=== PATIENT | female | born 1935 | race Caucasian/White ===

== ENCOUNTER 2021-02-09 15:52 | Emergency (ER) | payer MEDICARE, OTHER ==
[2021-02-09] MEDS ORDERED: Sodium Chloride 0.9% 10 ML Syringe FLUSH PRN (15:57)
--- NOTE | 2021-02-09 16:05 | EDM.PDOC ---
ED HPI GENERAL MEDICAL PROBLEM - General Chief Complaint: Trauma Stated Complaint: FALL Time Seen by Provider: 02/09/21 15:52 Source of Information: Reports: Patient, Family - History of Present Illness INITIAL COMMENTS - FREE TEXT/NARRATIVE: Heike, 85-year-old female, presents by ambulance this afternoon after her daughter found her on the floor in the 1500 time range today. She is pleasantly confused complaining of left femur pain and knee pain. She was unable to get up off the floor and was assisted into a chair which was somewhat uncomfortable for her. Her daughter tried to make phone contact with her last night and received a tone that call waiting was in process. This was roughly at 2100 hrs. on Wednesday, 08 February. There is no confirmation or estimate of time is Heike does not underst and/remember when this happened. She moves all her extremities with pain to the left lower extremity has no deficit in speech, but is pleasantly confused as to the occurrence and what process are occurring. When questioned she states she is unsure of what happened but is very uncomfortable. Daughter states she is a patient of Dr. Magali Hayes is although it is been many years since she has been seen on a routine basis. Onset: Unknown/Unsure - Related Data Allergies Allergy/AdvReac Type Severity Reaction Status Date / Time No Known Allergies Allergy Verified 02/09/21 16:43 Home Meds: Home Meds . [No Known Home Meds] 02/09/21 [History] Past Medical History - Past Health History Medical/Surgical History: Denies Medical/Surgical History - History Comment History Comment: Her daughter states she is in very good general health. Was a patient of Dr. 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 States she has not been on anything for some time and not following routine clinic visits, especially since COVID-19 pandemic. Social & Family History - Family History Family Medical History: No Pertinent Family History - Tobacco Use Tobacco Use Within Last Twelve Months: No ED ROS GENERAL - Review of Systems Review Of Systems: Unable To Obtain Reason Not Obtained: NOt accurate as confusion occurs. ED EXAM, GENERAL - Physical Exam Exam: See Below Free Text/Narrative:: Alert and cheerful, pleasantly confused to the undertaking of what has occurred with no recall of when incident occurred. She is fully dressed and when questioned, states she did not make it to latter day today, too busy. It is noted she has her hair and that tied around her left midshaft femur to which she cannot explain why it is there. When questioned if she puts it there when taking it off so it does not fall to the floor she laughs with no response. HEENT shows symmetry with facial motion intact. She is able to speak with no deficit nor slurring but, does not appropriately understand or answer questions. I do not appreciate any discomfort, areas of abrasion or tenderness, with soft supple neck. Thorax is mildly diminished likely due to her effort as well as no wheezes nor crackles are noted. Cardiac is distant S1-S2 with no appreciated murmur. There is no abdominal tenderness with bowel sounds present Radial pulses are present and correlate with apical heart rate. Tenderness in the left proximal femur, tenderness to the midshaft femur and knee region. Left lower extremity is shortened and rotated outward at the foot with pulse present skin is cool bilateral dorsalis pedis pulses are present. Nurses are able to remove her pants with slight discomfort to the left femur re oneilon to be able to place Carbajal catheter. She remains in cheerful status but is not fully appropriate in responses. #1 Interpretation EKG Date: 02/09/21 Time: 16:51 Rhythm: NSR [place]: Normal P-Wave: Present QRS: Normal ST-T: Normal QT: Prolonged Comparison: NA - No Prior EKG Course - Vital Signs Last Recorded V/S: Last Vital Signs Temp 97.8 F 02/09/21 15:55 Pulse 85 02/09/21 15:55 Resp 20 02/09/21 15:55 BP 127/77 02/09/21 15:55 Pulse Ox 97 02/09/21 15:55 - Orders/Labs/Meds Orders: Active Orders 24 hr Category Date Time Status EKG Documentation Completion [RC] ASDIRECTED Care 02/09/21 15:56 Ordered Carbajal Catheter Insertion [Insert Urinary Catheter] [OM. Care 02/09/21 16:00 Ordered PC] Q24H Peripheral IV Care [RC] . DIRECTED Care 02/09/21 15:57 Ordered Urinary Catheter Assessment [RC] ASDIRECTED Care 02/09/21 16:00 Ordered Chest 1V Frontal [CR] Stat Exams 02/09/21 15:58 Ordered Femur Min 1V Lt [CR] Stat Exams 02/09/21 15:58 Ordered Pelvis 1V or 2V [CR] Stat Exams 02/09/21 15:58 Ordered CK W CKMB [CHEM] Stat Lab 02/09/21 15:56 Ordered COMPREHENSIVE METABOLIC PN,CMP [CHEM] Stat Lab 02/09/21 15:55 Ordered LACTIC ACID [CHEM] Stat Lab 02/09/21 15:57 Ordered PTT,PARTIAL THROMBOPLSTIN TIME [COAG] Stat Lab 02/09/21 15:56 Ordered TROPONIN I HIGH SENSITIVITY [CHEM] Stat Lab 02/09/21 15:56 Ordered Sodium Chloride 0.9% [Saline Flush] Med 02/09/21 15:57 Ordered 10 ml FLUSH Q8HR PRN Peripheral IV Insertion Adult [OM.PC] Routine Oth 02/09/21 15:57 Ordered EKG 12 Lead [EK] Urgent Ther 02/09/21 15:55 Ordered Medication Orders Sodium Chloride (Sodium Chloride 0.9% 10 Ml Syringe) 10 ml FLUSH Q8HR PRN PRN Reason: keep vein open Labs: Laboratory Tests 02/09/21 02/09/21 Range/Units 16:00 16:00 WBC 12.59 H (5.00-10.00) 10^3/uL RBC 4.31 (3.80-5.50) 10^6/uL Hgb 13.5 (12.0-16.0) g/dL Hct 40.1 (37.0-47.0) % MCV 93.0 H (82.0-92.0) fL MCH 31.3 H (27.0-31.0) pg MCHC 33.7 (32.0-36.0) g/dL RDW 13.0 (11.5-14.5) % Plt Count 316 (150-400) 10^3/uL MPV 9.9 (7.4-10.4) fL Immature Gran % (Auto) 0.2 (0.0-5.0) % Neut % (Auto) 87.1 H (50.0-70.0) % Lymph % (Auto) 6.1 L (20.0-40.0) % [place] % (Auto) 6.5 (2.0-8.0) % Eos % (Auto) 0.0 L (1.0-3.0) % Baso % (Auto) 0.1 (0.0-1.0) % Neut # (Auto) 10.97 H (2.50-7.00) 10^3/uL Lymph # (Auto) 0.77 L (1.00-4.00) 10^3/uL [place] # (Auto) 0.82 H (0.10-0.80) 10^3/uL Eos # (Auto) 0.00 L (0.10-0.30) 10^3/uL Baso # (Auto) 0.01 (0.00-0.10) 10^3/uL Immature Gran # (Auto) 0.02 (0.00-0.50) 10^3/uL Specimen Type Urincc Urine Color Yellow (YELLOW) Urine Appearance Slightly cloudy H (CLEAR) Urine pH 7.0 (5.0-9.0) Ur Specific [place] 1.025 (1.005-1.030) Urine Protein 100 H (NEGATIVE) mg/dL Urine Glucose (UA) Negative (NEGATIVE) mg/dL Urine Ketones 40 H (NEGATIVE) mg/dL Urine Occult Blood Trace-intact H (NEGATIVE) Urine Nitrite Negative (NEGATIVE) Urine Bilirubin Negative (NEGATIVE) Urine Urobilinogen 0.2 (0.2-1.0) E.U./dL Ur Leukocyte Esterase Negative (NEGATIVE) U Hyaline Cast (Auto) Few Urine RBC 5-10 H (0-5) /HPF Urine WBC 5-10 H (0-5) /HPF Ur Epithelial Cells Rare /LPF Urine Bacteria Rare (NONE TO FEW) /HPF Granular Casts (Auto) Few Meds: Medications Generic Name Dose Route Start Last Admin Trade Name Freq PRN Reason Stop Dose Admin Sodium Chloride 10 ml 02/09/21 15:57 Sodium Chloride 0.9% 10 Ml Syringe FLUSH Q8HR PRN keep vein open - Re-Assessments/Exams Free Text/Narrative Re-Assessment/Exam: 02/09/21 16:47 Heike and her daughter are advised of the surgical neck fracture of the left femur/hip fracture. They choose [facility] in [place] for consult for surgical repair. 02/09/21 17:07 Departure - Departure Time of Disposition: 17:06 Disposition: DC/Tfer to Acute Hospital 02 Condition: Fair Clinical Impression: Fracture of neck of femur, hip, Fracture, femur neck, Rhabdomyolysis, Pain of left femur, Hip pain, left, Knee pain, left anterior - Discharge Information *PRESCRIPTION DRUG MONITORING PROGRAM REVIEWED*: Not Applicable *COPY OF PRESCRIPTION DRUG MONITORING REPORT IN PATIENT PRASANTH: Not Applicable Referrals: Montana Hayes MD [Primary Care Provider] - Forms: ED Department Discharge Additional Instructions: Dr Moore accepting [facility] in [place]. Sepsis Event Note (ED) - Focused Exam Vital Signs: Vital Signs Temp Pulse Resp BP Pulse Ox 02/09/21 15:55 97.8 F 85 20 127/77 97 - Problem List & Annotations (1) Hip pain, left SNOMED Code(s): 86219581 Code(s): M25.552 - PAIN IN LEFT HIP Status: Acute Priority: High Current Visit: Yes (2) Pain of left femur SNOMED Code(s): 623433058 Code(s): M89.8X5 - OTHER SPECIFIED DISORDERS OF BONE, THIGH Status: Acute Priority: High Current Visit: Yes (3) Knee pain, left anterior SNOMED Code(s): 273595153 Code(s): M25.562 - PAIN IN LEFT KNEE Status: Acute Priority: High Current Visit: Yes (4) Confusion SNOMED Code(s): 466310205 Code(s): R41.0 - DISORIENTATION, UNSPECIFIED Status: Acute Priority: High Current Visit: Yes (5) Fracture, femur neck SNOMED Code(s): 7527768 Code(s): S72.009A - FRACTURE OF UNSP PART OF NECK OF UNSP FEMUR, INIT Status: Acute Priority: High Current Visit: Yes Qualifiers: Encounter type: initial encounter Fracture type: closed Laterality: left Qualified Code(s): S72.002A - Fracture of unspecified part of neck of left femur, initial encounter for closed fracture (6) Rhabdomyolysis SNOMED Code(s): 832838531 Code(s): M62.82 - RHABDOMYOLYSIS Status: Acute Current Visit: Yes Qualifiers: Rhabdomyolysis type: traumatic Encounter type: initial encounter Qualified Code(s): T79.6XXA - Traumatic ischemia of muscle, initial encounter - Problem List Review Problem List Initiated/Reviewed/Updated: Yes - My Orders Last 24 Hours: My Active Orders 02/09/21 15:55 COMPREHENSIVE METABOLIC PN,CMP [CHEM] Stat EKG 12 Lead [EK] Urgent 02/09/21 15:56 EKG Documentation Completion [RC] ASDIRECTED CK W CKMB [CHEM] Stat PTT,PARTIAL THROMBOPLSTIN TIME [COAG] Stat TROPONIN I HIGH SENSITIVITY [CHEM] Stat 02/09/21 15:57 Peripheral IV Care [RC] . DIRECTED LACTIC ACID [CHEM] Stat Sodium Chloride 0.9% [Saline Flush] 10 ml FLUSH Q8HR PRN Peripheral IV Insertion Adult [OM.PC] Routine 02/09/21 15:58 Chest 1V Frontal [CR] Stat Femur Min 1V Lt [CR] Stat Pelvis 1V or 2V [CR] Stat 02/09/21 16:00 Carbajal Catheter Insertion [Insert Urinary Catheter] [OM.] Q24H Urinary Catheter Assessment [RC] ASDIRECTED - Assessment/Plan Last 24 Hours: My Active Orders 02/09/21 15:55 COMPREHENSIVE METABOLIC PN,CMP [CHEM] Stat EKG 12 Lead [EK] Urgent 02/09/21 15:56 EKG Documentation Completion [RC] ASDIRECTED CK W CKMB [CHEM] Stat PTT,PARTIAL THROMBOPLSTIN TIME [COAG] Stat TROPONIN I HIGH SENSITIVITY [CHEM] Stat 02/09/21 15:57 Peripheral IV Care [RC] . DIRECTED LACTIC ACID [CHEM] Stat Sodium Chloride 0.9% [Saline Flush] 10 ml FLUSH Q8HR PRN Peripheral IV Insertion Adult [OM.PC] Routine 02/09/21 15:58 Chest 1V Frontal [CR] Stat Femur Min 1V Lt [CR] Stat Pelvis 1V or 2V [CR] Stat 02/09/21 16:00 Carbajal Catheter Insertion [Insert Urinary Catheter] [OM.PC] Q24H Urinary Catheter Assessment [RC] ASDIRECTED Plan: Dr Moore accepting [facility] in [place].
[2021-02-09 16:44] LABS: ANION GAP 18.7 mmol/L (5-15)
[2021-02-09] MEDS ORDERED: HYDROmorphone 1 MG/ML Syringe IVPUSH ONE ×2 (16:52→17:10)
[2021-02-09] MEDS ORDERED: Ondansetron 4 MG/2 ML SDV IVPUSH ONE (16:58)
[2021-02-09] MEDS ORDERED: Ondansetron 4 MG/2 ML SDV ONE (17:00)
--- NOTE | 2021-02-09 17:01 | CR ---
[id number] RAD/RAD Chest PA or AP 1V EXAM: RAD Chest PA or AP 1V INDICATION: FALL, LEG PAIN. COMPARISON: None. DISCUSSION: Cardiomediastinal silhouette is normal in size and contour. No infiltrate, effusion, pneumothorax, or edema. Pulmonary hyperinflation. IMPRESSION: No acute cardiopulmonary abnormality. Adan Springer DO 02/09/21 [id number] Thank you for allowing us to participate in the care of your patient.
--- NOTE | 2021-02-09 17:01 | CR ---
[id number] RAD/RAD Femur Left 1V EXAM: 2 VIEWS LEFT FEMUR. INDICATION: FALL, HIP AND LEG PAIN. COMPARISON: None. DISCUSSION: Acute multi fragmentary subcapital femoral neck fracture with impaction. No dislocation. IMPRESSION: 1. As above. Adan Springer DO 02/09/21 [id number] Thank you for allowing us to participate in the care of your patient.
--- NOTE | 2021-02-09 17:02 | CR ---
[id number] RAD/RAD Pelvis 1-2V EXAM: SINGLE VIEW PELVIS. INDICATION: FALL, HIP AND LEG PAIN. COMPARISON: None. DISCUSSION: Acute multi fragmentary subcapital femoral neck fracture with impaction. No dislocation. IMPRESSION: 1. As above. Adan Springer DO 02/09/21 [id number] Thank you for allowing us to participate in the care of your patient.
== END 2021-02-09 17:55 ==
LOC: KA.ED 15:52
DX: S72.092A Other fracture of head and neck of left femur, initial encounter for closed fracture (principal); T84.011A Broken internal left hip prosthesis, initial encounter; R41.0 Disorientation, unspecified; W18.39XA Other fall on same level, initial encounter; R94.31 Abnormal electrocardiogram [ECG] [EKG]
CPT/HCPCS: 36415; 51702; 71045; 72170; 80053; 81001; 82550; 82553; 83605; 84484; 85025; 93005; 96374; 96375; 99284; 99285-25; J1170; J2405